=== PATIENT | male | born 1935 | race Caucasian/White ===

== ENCOUNTER 2017-05-02 15:23 | Emergency (ER) | payer MEDICARE, BC ==
[~2017-05-02] VITALS: Ht 180.3 cm; Wt 70.0 kg
[2017-05-02 15:24] VITALS: BP 193/85; PULSE 85; RESP 18; TEMP 97.8; O2SAT 99
[2017-05-02 15:28] VITALS: BP 174/82
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
[2017-05-02] MEDS ORDERED: ACETAMINOPHEN 325 MG TAB PO ONE (16:00)
--- NOTE | 2017-05-02 16:24 | RADRPT ---
EXAM DATE/TIME: 05/02/2017 16:03 [facility] COMPARISON: No previous studies available for comparison. INDICATIONS : Left shoulder pain after fall. MEDICAL HISTORY : None. SURGICAL HISTORY : None. ENCOUNTER: Initial ACUITY: 1 day PAIN SCORE: 9/10 LOCATION: Left shoulder. FINDINGS: Examination reveals a multipart fracture of the distal left clavicle with mild displacement of distal fragments relative to the proximal shaft. The glenohumeral relationship appears grossly intact. Deidra cent ribs are intact. CONCLUSION: Mildly displaced distal clavicle fractures. Rigoberto Reyes MD on May 02, 2017 at 16:21 Board Certified Radiologist. This report was verified electronically.
[2017-05-02] MEDS ORDERED: oxyCODONE/ACETAMINOPHEN 5 MG/325 MG TAB PO ONE (16:45)
[2017-05-02] MEDS ORDERED: ZOFR4TAB3 SL (16:57)
[2017-05-02] MEDS ORDERED: PERC5TAB12 PO (16:57)
--- NOTE | 2017-05-02 17:31 | RADRPT ---
EXAM DATE/TIME: 05/02/2017 17:08 [facility] COMPARISON: No previous studies available for comparison. INDICATIONS : Left side head injury from fall. RADIATION DOSE: 56.35 CTDIvol (mGy) MEDICAL HISTORY : None SURGICAL HISTORY : None. ENCOUNTER: Initial ACUITY: 1 day PAIN SCALE: 2/10 LOCATION: Left cranial TECHNIQUE: Multiple contiguous axial images were obtained of the head. Using automated exposure control and adj ustment of the mA and/or kV according to patient size, radiation dose was kept as low as reasonably a chievable to obtain optimal diagnostic quality images. DICOM format image data is available electro nically for review and comparison. FINDINGS: CEREBRUM: Mild diffuse cerebral volume loss. Small left subinsular and basal ganglia hypodensities consistent w ith small lacunar infarcts. The ventricles are normal for degree of atrophy.. No evidence of midline shift, mass lesion, hemorrhage or acute infarction. No extra-axial fluid collections are seen. POSTERIOR FOSSA: The cerebellum and brainstem are intact. The 4th ventricle is midline. The cerebellopontine angle i s unremarkable. EXTRACRANIAL: The visualized portion of the orbits is intact. Small soft tissue hematoma overlying the left frontot emporal region. SKULL: The calvaria is intact. No evidence of skull fracture. CONCLUSION: 1. Small soft tissue hematoma overlying the left frontotemporal region. 2. No acute intracranial normality. Vishnu Tavarez MD on May 02, 2017 at 17:27 Board Certified Radiologist. This report was verified electronically.
[2017-05-02] MEDS ORDERED: CLIN1CAP5 PO (17:44)
== END 2017-05-02 17:49 | disposition home or self-care (01) ==
LOC: NEPK 15:23
DX: S42.032A Displaced fracture of lateral end of left clavicle, initial encounter for closed fracture (principal); S51.012A Laceration without foreign body of left elbow, initial encounter; S09.90XA Unspecified injury of head, initial encounter; S00.03XA Contusion of scalp, initial encounter; W19.XXXA Unspecified fall, initial encounter; I10 Essential (primary) hypertension; W22.8XXA Striking against or struck by other objects, initial encounter; Z79.899 Other long term (current) drug therapy
CPT/HCPCS: 70450; 73030